=== PATIENT | male | born 1950 | race Caucasian/White ===

== ENCOUNTER 2019-11-15 07:37 | Emergency (ER) | payer OTHER ==
[2019-11-15 08:09] VITALS: BP 145/65
--- NOTE | 2019-11-15 08:23 | UC ---
UC General HPI - HPI Summary HPI Summary: HEre with , concerned about persistent cough. States he had a cold at end of September it his cough has gotten continually worse. No pattern to the cough , not worse at night. States he has a lot of PND. No weight changes, no swelling in his legs. Ribs on the right side are sore. states last night he felt like he could hear fluid in his right lung. No fever. No SOB. No recent CP. Takes corcidin HD. PMHx: CABG, HLD Meds; Reviewed - History of Current Complaint Chief Complaint: UCRespiratory Stated Complaint: COUGH Time Seen by Provider: 11/15/19 08:11 Pain Intensity: 3 - Allergy/Home Medications Allergies/Adverse Reactions: Allergies Allergy/AdvReac Type Severity Reaction Status Date / Time No Known Allergies Allergy Verified 11/15/19 07:55 Home Medications: Home Medications Aspirin [Aspirin Childrens 81 MG] 81 mg PO DAILY 11/15/19 [History Confirmed ] Atorvastatin* [Lipitor*] 20 mg PO DAILY 11/15/19 [History Confirmed 11/15/19] Ergocalciferol (Vitamin D2) [Vitamin D2] 250,000 unit PO DAILY 11/15/19 [ History Confirmed 11/15/19] Esomeprazole Magnesium [Nexium 24Hr] 20 mg PO DAILY 11/15/19 [History Confirmed 11/15/19] Fenofibrate Nanocrystallized [Tricor] 48 mg PO DAILY 11/15/19 [History Confirmed 11/15/19] Nebivolol HCl [Bystolic] 5 mg PO DAILY 11/15/19 [History Confirmed 11/15/19] [place]-3 Acid Ethyl Esters [Lovaza 1 gm] 1 cap PO BID 11/15/19 [History Confirmed 11/15/19] Wheat Dextrin [Benefiber] 152 gm PO DAILY 11/15/19 [History Confirmed 11/15/19] PMH/Surg Hx/FS Hx/Imm Hx Previously Healthy: Yes Endocrine History: Dyslipidemia Cardiovascular History: Cardiac Disease, Hypertension GI/ History: Gastroesophageal Reflux - Surgical History Surgical History: Yes Surgery Procedure, Year, and Place: QUADDROUPIL BYPASS, CARDIAC STENTS, CHOLYCYSTECTOMY, LIVER BX - Social History Alcohol Use: Rare Substance Use Type: None Smoking Status (MU): Former Smoker When Did the Patient Quit Smoking/Using Tobacco: over 30 years ago Review of Systems All Other Systems Reviewed And Are Negative: Yes Respiratory: Positive: Cough Physical Exam Triage Information Reviewed: Yes Appearance: Well-Appearing Vital Signs: Initial Vital Signs Temp 99.1 F 11/15/19 07:59 Pulse 74 11/15/19 07:59 Resp 20 11/15/19 07:59 BP 145/65 11/15/19 07:59 Pulse Ox 96 11/15/19 07:59 Eyes: Positive: Conjunctiva Clear ENT: Positive: Pharyngeal erythema, TMs normal Neck: Positive: Supple, Nontender Respiratory: Positive: No respiratory distress, No accessory muscle use, Other: - diminished breath sounds over right lung. Cardiovascular: Positive: RRR, Other: - systolic murmur 2 Diagnostics - Radiology CXR Radiology Interpretation Completed By: Radiologist Summary of Radiographic Findings: Hyperinflation consistent with COPD, No acute cardiopulmonary disease Course/Dx - Course Course Of Treatment: This is a 68 yr old here with a persistent cough CXR: OFficial read: Negative ?Small PNA in RLL Plan Start Augmentin as prescribed Start Albuterol inhaler with spacer - take as needed Follow up with PCP to make sure you are improving. If symptoms persist or worsen, follow up with PCP, return to urgent care or go to the ER - Diagnoses Provider Diagnosis: Pneumonia Discharge ED - Sign-Out/Discharge Documenting (check all that apply): Patient Departure All imaging exams completed and their final reports reviewed: Yes - Discharge Plan Condition: Good Disposition: HOME Prescriptions: Amoxicillin/Clavulanate TAB* [Augmentin TAB 875*] 875 mg PO BID #10 tab Patient Education Materials: Pneumonia (ED) Referrals: Marc Frausto MD [Primary Care Provider] - Additional Instructions: Start Augmentin as prescribed Start Albuterol inhaler with spacer - take as needed Follow up with PCP to make sure you are improving. If symptoms persist or worsen, follow up with PCP, return to urgent care or go to the ER - Billing Disposition and Condition Condition: GOOD Disposition: Home
== END 2019-11-15 08:55 | disposition home or self-care (01) ==
LOC: UCCORT 07:37
DX: J18.9 Pneumonia, unspecified organism (principal); I10 Essential (primary) hypertension; K21.9 Gastro-esophageal reflux disease without esophagitis; E78.5 Hyperlipidemia, unspecified; Z87.891 Personal history of nicotine dependence; Z95.5 Presence of coronary angioplasty implant and graft; Z95.1 Presence of aortocoronary bypass graft; Z79.899 Other long term (current) drug therapy
CPT/HCPCS: 71046; 99212; G0463